=== PATIENT | male | born 1970 | race Caucasian/White ===

== ENCOUNTER → 2023-02-02 | Outpatient (CLI) | payer OTHER, SELFPAY ==
--- NOTE | 2023-02-02 11:37 | PFTCOMP ---
COMPLETE PULMONARY FUNCTION TEST REPORT Patient: Akira arteaga Date 02/02/2023 Referring physician: Dr. Adam Xiong Indication: Current [id number] smoker, dyspnea Spirometry pre and post bronchodilator showed: 1. No evidence of airway obstruction 2. No response to bronchodilator 3. Review of flow volume loop morphology showed Testament standards of acceptability, usability, and reproducibility. Steward/Stewardess Bath comments indicated a good patient effort. Lung volume studies by plethysmography were normal. 1. No evidence of restriction. The TLC was 94% predicted, vital capacity was 89% predicted. 2. No evidence of hyperinflation. The residual volume was 87% predicted, RV/TLC was 87%. Diffusing capacity by single breath carbon monoxide technique showed: 1. Normal gas exchange. Clinical and radiographic correlation is recommended. Shay Moore MD [facility] Pulmonary Medicine [facility] Date dictated: 02/02/2023, 1141 hrs.
== END | disposition home or self-care (01) ==
LOC: PSN 09:06
PROVIDERS: Referring Provider Internal Medicine Critical Care Medicine; Visit Provider Internal Medicine Critical Care Medicine
DX: R06.00 Dyspnea, unspecified (principal)
CPT/HCPCS: 94060; 94726; 94729

== ENCOUNTER → 2023-02-06 | Outpatient (CLI) | payer OTHER, SELFPAY ==
[2023-02-06 12:30] VITALS: PULSE 0; PULSE 84; PULSE 93; PULSE 94; PULSE 96; PULSE 97; PULSE 98; O2SAT 87; O2SAT 93; O2SAT 94; O2SAT 96
--- NOTE | 2023-02-07 05:51 | PCM.PSN.6M ---
PSN 6 Minute Walk Test 6 Minute Walk Test 6 Minute Walk Test: 6 Minute Walk Test PSN:6-Minute Walk Test Start: 02/06/23 12:34 Freq: Status: Active Protocol: [id number] Document 02/06/23 12:30 [facility] (Rec: 02/06/23 12:37 [facility] [id number]) 6 Minute Walk Test Date Performed 02/06/23 Time Performed 12:30 Height 6 ft Weight: 108.862 kg Weight in Pounds 240.[address]: Dr Xiong Assistive device used: None Pre-test Oxygen Delivery Method Room Air Pulse Ox (%) 87 Pulse Rate (60-100 beats/min) 0 L Dyspnea Benito Scale (0-10) 6 1st minute Oxygen Delivery Method Room Air Pulse Ox (%) 94 Pulse Rate (60-100 beats/min) 94 2nd minute Oxygen Delivery Method Room Air Pulse Ox (%) 94 Pulse Rate (60-100 beats/min) 94 3rd minute Oxygen Delivery Method Room Air Pulse Ox (%) 93 Pulse Rate (60-100 beats/min) 98 4th minute Oxygen Delivery Method Room Air Pulse Ox (%) 94 Pulse Rate (60-100 beats/min) 96 5th minute Oxygen Delivery Method Room Air Pulse Ox (%) 94 Pulse Rate (60-100 beats/min) 97 6th minute Oxygen Delivery Method Room Air Pulse Ox (%) 94 Pulse Rate (60-100 beats/min) 93 Dyspnea Benito Scale (0-10) 0.5 Exertion Benito Scale (6-20) 11 Post-test Oxygen Delivery Method Room Air Pulse Ox (%) 96 Pulse Rate (60-100 beats/min) 84 Full Laps Walked 21 Partial Lap, Number of Tiles Walked 15 Total Distance Walked (ft) 1254 Interpretation Interpretation: The patient was able to travel 1254 feet over the course of 6 minutes on room air with no assistive devices or breaks. The patient experienced no significant desaturation from a baseline of 94% on room air and no significant tachycardia was noted. These findings are consistent with a normal walking oximetry. Recommendations Recommendations: No supplemental oxygen is indicated at this time.
== END | disposition home or self-care (01) ==
LOC: PSN 11:56
PROVIDERS: Referring Provider Internal Medicine Critical Care Medicine; Visit Provider Internal Medicine Critical Care Medicine
DX: R06.00 Dyspnea, unspecified (principal)
CPT/HCPCS: 94618

== ENCOUNTER → 2023-05-28 | Outpatient (CLI) | payer OTHER, SELFPAY ==
--- NOTE | 2023-05-28 15:03 | CT_ITS ---
STUDY: CT ABDOMEN AND PELVIS WITHOUT CONTRAST REASON FOR EXAM: Male, 53 years old. N200,KIDNEY STONE RADIATION DOSAGE (If Supplied By Facility): CTDIvol = ( 19.70 ) mGy, DLP = ( 1032.09 ) mGycm TECHNIQUE: Transaxial images were obtained from the dome of the diaphragm to the symphysis pubis without oral contrast, and without intravenous contrast. Sagittal and coronal images were reconstructed. Individualized dose optimization techniques were used for this CT. COMPARISON: None. FINDINGS: 5 mm peripheral nodule in the right lung base posteriorly, image 6 series 2. The visualized portions of the heart are within normal limits. Normal liver. Normal gallbladder and extrahepatic biliary system. Normal spleen. Normal pancreas. Normal bilateral adrenal glands. Up to 1.8 cm cystic nodules of the right kidney. Up to 6 mm calculi in the left kidney. Normal visualized stomach. Normal small intestine. Normal colon. The appendix is visualized and appears normal. Normal abdominal aorta. Normal inferior vena cava. Normal retroperitoneum. Normal urinary bladder. Normal abdominal wall. Normal osseous structures. CT/Abdomen/Pelvis without Cont IMPRESSION: Right renal cystic nodules. Nonobstructive left renal calculi. Peripheral right lower lobe nodule. Follow-up in 3-4 months is recommended. Electronically Signed: Ernesto Hall DO at 20:05 EDT ,
== END | disposition home or self-care (01) ==
DX: N20.0 Calculus of kidney (principal)
CPT/HCPCS: 74176

== ENCOUNTER 2023-06-07 11:57 | Outpatient (CLI) | payer OTHER, SELFPAY ==
[2023-06-07 13:15] LABS: Absolute Neutrophil Count 7.6 X10^3/uL (2.0-7.7); Basophil# 0.03 X10^3/uL; Basophil% 0.3 % (0-1); Eosinophil# 0.16 X10^3/uL; Eosinophils% 1.5 % (0-5); Hematocrit 46.5 % (40-54); Hemoglobin 14.8 g/dL (13.0-16.5); Lymphocyte % 20.9 % (19-41); Mean Corp Hgb Conc 31.8 g/dL (32-36); Mean Corpuscular Hgb 29.4 pg (27.0-32.0); Mean Corpuscular Volume 92.3 fL (80-94); Mean Platelet Vol. 9.9 fl (6.2-12.0); Monocyte# 0.89 X10^3/uL; Monocyte% 8.1 % (0-10); NRBC Flagged by Analyzer 0 % (0-5); Neutrophil # 7.57 X10^3/uL (2.7-7.7); Neutrophil % 68.8 % (47-70); Platelet Count 235 K/mm3 (150-450); RBC Distribution Width CV 14.3 % (11.6-14.6); RBC Distribution Width SD 48.4 fl (35.1-43.9); Red Blood Count 5.04 M/mm3 (4.6-6.2)
[2023-06-07 13:19] LABS: International Normalized Ratio 1.1; Prothrombin Time (Protime)PT. 13.7 SECONDS (11.7-14.9)
[2023-06-07 13:33] LABS: Progesterone Level 0.29 ng/mL (See Comment); T3 Total - Triiodothyronine 1.54 ng/mL (0.6-1.81)
[2023-06-09 06:43] LABS: ALB/GLOB Ratio 0.9 RATIO (0.9-2.4); AST(SGOT) 22 U/L (15-37); Alanine Aminotransfer ALT/SGPT 30 U/L (16-61); Albumin, Serum 3.3 g/dL (3.2-5.0); Alkaline Phosphatase 61 U/L (45-117); Anion Gap 3 (5-15); BUN 13 mg/dL (7-18); BUN/Creat Ratio 17.2 RATIO (10-20); Chloride 108 mmol/L (98-107); Creatinine, Serum 0.76 mg/dL (0.70-1.30); EST Glomerular Filtration Rate 114 mL/min (>60); Est Glom Filt Rate - Afr Amer 137 mL/min (>60); Estradiol 32.8 pg/mL; Follicle Stimulating Hormone 8.1 mIU/mL; Globulin 3.8 g/dL (2.2-4.2); Glucose 113 mg/dL (74-106); Luteinizing Hormone 4.2 mIU/mL; Potassium 3.9 mmol/L (3.5-5.1); Prolactin 5.9 ng/mL; Protein, Total 7.1 g/dL (6.4-8.2); Sodium Level 140 mmol/L (136-145); T3 Uptake 34 % (33-40); T4 Total, Thyroxin 9.8 ug/dL (4.5-12.1); T7 / Free Thyroxin Index 3.3 (1.4-4.5); Thyroid Stim Hormone (TSH) 3.25 uIU/mL (0.358-3.74)
[2023-06-13 02:57] LABS: Estrogen, Total, Serum 152 pg/mL (56-213)
== END 2023-06-07 23:59 | disposition home or self-care (01) ==
DX: I73.9 Peripheral vascular disease, unspecified (principal); R53.82 Chronic fatigue, unspecified
CPT/HCPCS: 36415; 80053; 82670; 82672; 83001; 83002; 84144; 84146; 84403; 84436; 84443; 84479; 84480; 85025; 85610

== ENCOUNTER → 2023-06-11 | Outpatient (CLI) | payer OTHER, SELFPAY ==
--- NOTE | 2023-06-11 13:37 | CT_ITS ---
INDICATION: SOLITARY PULMONARY NODULE EXAMINATION: CT CHEST WITHOUT CONTRAST - CT Chest W/O Contrast Injection TECHNIQUE: Helically acquired images were obtained of the chest. A radiation dose optimization technique was used for this scan. IV Contrast dosage and agent: None. COMPARISON: CT abdomen and pelvis from 05/28/2023 FINDINGS: LUNGS, PLEURA AND LARGE AIRWAYS: Lung windows show lungs to be mildly hyperexpanded with chronic interstitial changes and tree in bud opacification suggesting small airways inflammation. There is a 1.5 cm pneumatocele in the right upper lobe, there is a stable 5 mm pleural-based nodule in the right lower lobe on axial image 72 unchanged from the recent CT abdomen and pelvis. A six-month follow-up is recommended to assess stability. No organized infiltrate or effusion. THYROID: No thyroid lesions. HEART AND PERICARDIUM: Heart size is normal. No pericardial effusion. CORONARY ARTERIES: Coronary artery calcification is seen. VESSELS: Thoracic aorta is not dilated. MEDIASTINUM AND SEA: No suspicious axillary mediastinal or hilar adenopathy. There are likely reactive mediastinal lymph nodes measuring up to 7 mm in short axis dimension. Esophagus is unremarkable. No hiatal hernia. UPPER ABDOMEN: No acute pathology. BONES: No suspicious lytic or blastic abnormality. Bony structures show degenerative change CT/Chest without Contrast IMPRESSION: Underlying emphysema with chronic interstitial changes. Small airways inflammation noted along with a stable noncalcified 5 mm pleural-based nodule in the right lower lobe. Six-month follow-up recommended to ensure resolution No organized infiltrate or effusion No suspicious bulky adenopathy Degenerative bony changes Electronically Signed: Donald Boudreaux MD at 15:33 EDT ,
== END | disposition home or self-care (01) ==
LOC: CT 13:33
DX: R91.1 Solitary pulmonary nodule (principal)
CPT/HCPCS: 71250

== ENCOUNTER → 2023-07-25 | Outpatient (CLI) | payer OTHER, SELFPAY ==
[2023-07-25 12:34] LABS: Absolute Lymphocyte Count 2.51 X10^3/uL (0.83-4.51); Absolute Neutrophil Count 7.7 X10^3/uL (2.0-7.7); Basophil# 0.04 X10^3/uL; Basophil% 0.4 % (0-1); Eosinophils% 0.9 % (0-5); Hematocrit 48.8 % (40-54); Hemoglobin 15.5 g/dL (13.0-16.5); Lymphocyte # 2.51 X10^3/ul (0.83-4.51); Lymphocyte % 22.4 % (19-41); Mean Corp Hgb Conc 31.8 g/dL (32-36); Mean Corpuscular Hgb 28.9 pg (27.0-32.0); Mean Corpuscular Volume 90.9 fL (80-94); Mean Platelet Vol. 9.8 fl (6.2-12.0); Monocyte# 0.76 X10^3/uL; Monocyte% 6.8 % (0-10); NRBC Flagged by Analyzer 0 % (0-5); Neutrophil # 7.74 X10^3/uL (2.7-7.7); Platelet Count 227 K/mm3 (150-450); RBC Distribution Width CV 14.1 % (11.6-14.6); RBC Distribution Width SD 47.4 fl (35.1-43.9); Red Blood Count 5.37 M/mm3 (4.6-6.2); White Blood Count 11.2 K/mm3 (4.4-11.0)
[2023-07-25 12:48] LABS: Prothrombin Time (Protime)PT. 13.6 SECONDS (11.7-14.9)
[2023-07-25 13:20] LABS: Anion Gap 5 (5-15); BUN 12 mg/dL (7-18); BUN/Creat Ratio 14.5 RATIO (10-20); Calcium,Total 9.1 mg/dL (8.5-10.1); Chloride 105 mmol/L (98-107); Creatinine, Serum 0.83 mg/dL (0.70-1.30); EST Glomerular Filtration Rate 102 mL/min (>60); Est Glom Filt Rate - Afr Amer 124 mL/min (>60); Glucose 97 mg/dL (74-106); Potassium 4.1 mmol/L (3.5-5.1); Sodium Level 138 mmol/L (136-145)
== END | disposition home or self-care (01) ==
DX: I73.9 Peripheral vascular disease, unspecified (principal)
CPT/HCPCS: 36415; 80048; 85025; 85610

== ENCOUNTER → 2023-07-31 | Outpatient (CLI) | payer OTHER, SELFPAY ==
--- NOTE | 2023-07-31 07:20 | EKG12_ITS ---
Test Reason : PRE-OP Blood Pressure : / mmHG Vent. Rate : 077 BPM Atrial Rate : 077 BPM P-R Int : 186 ms QRS Dur : 108 ms QT Int : 400 ms P-R-T Axes : 041 050 043 degrees QTc Int : 452 ms Normal sinus rhythm Normal ECG Confirmed by ZENAIDA ROSE, ROSALIND ([id number]), editorial cartoonist ROCHELLE ASHLEY ([id number]) on 08/06/2023 7:01:22 AM Referred By: MIRIAN DEGROOT Confirmed By:JUAREZ ESTEVEZ MD
== END | disposition home or self-care (01) ==
LOC: PSN 07:19
DX: Z01.810 Encounter for preprocedural cardiovascular examination (principal)
CPT/HCPCS: 93005

== ENCOUNTER → 2024-06-16 | Outpatient (CLI) | payer OTHER, SELFPAY ==
--- NOTE | 2024-06-16 17:51 | CT_ITS ---
STUDY: CT ABDOMEN AND PELVIS WITHOUT CONTRAST REASON FOR EXAM: Male, 54 years old. KIDNEY STONE RADIATION DOSAGE (If Supplied By Facility): CTDIvol = ( 20.29 ) mGy, DLP = ( 1108.57 ) mGycm TECHNIQUE: Transaxial images were obtained from the dome of the diaphragm to the symphysis pubis without oral contrast, and without intravenous contrast. Sagittal and coronal images were reconstructed. Individualized dose optimization techniques were used for this CT. COMPARISON: May 28, 2023 FINDINGS: The visualized lung bases are unremarkable. The visualized portions of the heart are within normal limits. Normal liver. Normal gallbladder and extrahepatic biliary system. Normal spleen. Normal pancreas. Normal bilateral adrenal glands. Tiny nonobstructing right renal calculus.. There is also a tiny cortical cyst which will not require additional. Multiple nonobstructing left renal calculi. . No evidence for obstruction or ureteral calculus. Normal visualized stomach. Normal small intestine. Normal colon. The appendix is visualized and appears normal. Atherosclerotic changes of the aorta without evidence for aneurysm. Normal inferior vena cava. Normal retroperitoneum. Poorly distended thick walled bladder likely of no significance. Small bilateral fat-containing inguinal hernias. Lumbar spine demonstrates degenerative change CT/Abdomen/Pelvis without Cont IMPRESSION: Bilateral nephrolithiasis more on the left without evidence for renal obstruction or ureteral stone. Electronically Signed: Luke Menezes MD at 19:31 EDT ,
--- OUTSIDE RECORDS SUMMARY | 2024-06-16 20:07 | XMS RPT_ITS | CCD ---
Author Organization [facility] Care Team Providers Care Clinical Data Associate Name Role Phone Ronny Guzmán Attending Unavailable MARI Eid.MANUELITO Zhang Attending Edwin Crespo Attending Unavailable NELIA MORRIS Attending Unavailable NELIA MORRIS Referring Unavailable MARNIE CHOPRA Primary Care Unavailable CAMERON MONTEIRO Attending Unavailable CAMERON MONTEIRO Referring Unavailable MARNIE [...] Peripheral vascular disease, unspecified; Translations: [Atherosclerosis of [place] arteries of extremities with intermittent claudication, bilateral legs] Onset: 04-13-2023 Chronic Results Test Name Value Interpretation Reference Range Facility ADCon 04-13-2023 ADC Name: DONNA BRAY Phys: Leatha Eid APRN.CNP : 1970 Age: 53 Sex: M Acct: [id number] Loc: [facility] Exam Date: 04/13/2023 Status: REG REF Radiology No: Unit No: [id number] PH: [phone] Diagnosis: PAD EXAM: [id number] AORTA DUPLEX COMPLETE Reason For Procedure: PAD [...] Technologist: VIOLA GUTIERREZ Transcribed Date/Time: 04/13/2023 (1145) Internal Communications Manager: RAKESH Printed Date/Time: 04/13/2023 (4480) PAGE 1 Signed Report Normal [facility]CL[facility] 04-13-2023 [facility] Name: DONNA BRAY Phys: Leatha Eid APRN.BIOINFORMATICS PROGRAMMER : 1970 Age: 53 Sex: M Acct: [id number] Loc: [facility] Exam Date: 04/13/2023 Status: REG REF Radiology No: Unit No: [id number] PH: [phone] Diagnosis: PAD EXAM: [id number] ARTERIAL DUPLEX LE BILATERAL Reason For Procedure: [...] (CONTINUED) Name: DONNA BRAY Phys: Leatha Eid APRN.BIOINFORMATICS PROGRAMMER : 1970 Age: 53 Sex: M Acct: [id number] Loc: [facility] Exam Date: 04/13/2023 Status: REG REF Radiology No: Unit No: [id number] PH: [phone] Diagnosis: PAD EXAM: [id number] ARTERIAL DUPLEX LE BILATERAL Reason For Procedure: [...] CC: Technologist: VIOLA GUTIERREZ Transcribed Date/Time: 04/13/2023 (0617) Internal Communications Manager: RAKESH Printed Date/Time: 04/13/2023 (8379) PAGE [address] [facility] 04-13-2023 [facility] Name: DONNA BRAY Phys: Leatha Eid APRN.BIOINFORMATICS PROGRAMMER : 1970 Age: 53 Sex: M Acct: [id number] Loc: [facility] Exam Date: 04/13/2023 Status: REG REF Radiology No: Unit No: [id number] PH: [phone] Diagnosis: PAD EXAM: [id number] CAROTID DUPLEX BILATERAL Reason For Procedure: PAD [...] (CONTINUED) Name: DONNA BRAY Phys: Leatha Eid APRN.BIOINFORMATICS PROGRAMMER : 1970 Age: 53 Sex: M Acct: [id number] Loc: [facility] Exam Date: 04/13/2023 Status: REG REF Radiology No: Unit No: [id number] PH: [phone] Diagnosis: PAD EXAM: [id number] CAROTID DUPLEX BILATERAL Reason For Procedure: PAD IMPRESSION No significant increase in velocities denoting less than 50% stenosis in bilateral internal carotid artery Bilateral vertebral arteries exhibit antegrade flow. REPORT SIGNED IN OTHER VENDOR SYSTEM 04/13/2023 Reported By: Franc Paez MD CC: Technologist: VIOLA GUTIERREZ Transcribed Date/Time: 04/13/2023 (2122) Internal Communications Manager: RAKESH Printed Date/Time: 04/13/2023 (1147) PAGE 2 Signed Report Normal [facility] ECHOIon 07-10-2022 ECHOI [facility] [address] [id number] ECHOCARDIOGRAM REPORT Transthoracic Echocardiography Report (TTE) Report Status: Finalized Revision: 0 Demographics Name: DONNA BRAY Requested by: SHANICE Matute :1970 Gender:Male Procedure date: 07/10/2022 [employer] Furnace Operator Helper: MD Franc Paez Height: 72 Inches Party Plan Dealer: PERLITA Pat Weight: 230.01 Pounds Blood Pressure: 128/84 mmHg BSA: 2.26 m 2 Type of study: [facility] ECHOCARDIOGRAM COMPLETE Indications: 1) PVCs History: CAD,PAD,PVCs,HTN,HLD,MANUEL [...] with respirations. ! Name: DONNA BRAY MR#: [id number] !No pericardial effusion noted. ! !No pleural [...] pulmonic stenosis. pressure. Name: DONNA BRAY MR#: [id number] 2D measurements Left ventricle MARLEY dimension: 4.62 [...] Mean Veloc (more content not included)... Normal [facility] CT CHEST WITH CONTRASTon CT CHEST WITH CONTRAST [id number] Signs/Symptoms: optum c [id number] auth ct [id number] History: R91.[address] CHEST [...] 14:07 by: Alpesh Nance MD Order Number: [id number] [facility] Comment on above: Order Comment: ctch2 orders fax NKA/DD/L ABS ORDERED POC CREATININE READINGon Creatinine [Mass/Vol] 1.00 mg/dL Normal 0.7-1.3 [facility] Comment on above: Performed By: #### PCRX #### [facility] [address] [place] [address]25 eGFR AM. >60 Normal >60 [facility] Comment on above: Performed By: #### PCRX #### [facility] [address] [place] [address]402 eGFR NON AM. >60 Normal >60 [facility] Comment on above: Performed By: #### PCRX #### [facility] [address] [place] [address] MR CERVICAL NO CONTRASTon MR CERVICAL NO CONTRAST [id number] Signs/Symptoms: [facility] OPTUM [id number] AUTH C - [id number] T [id number] History: THORACIC/CERVICAL PAIN WORSENING MR CERVICAL NO [...] 07:14 by: Obi Seaman MD Order Number: [id number] [facility]. Comment on above: Order Comment: MRCER1 MRTH1 ORDERS FAX MR THORACIC WITHOUT CONTRAST on 08-08-2020 MR THORACIC WITHOUT CONTRAST [id number] Signs/Symptoms: [facility] OPTUM [id number] AUTH C - [id number] T [id number] History: THORACIC/CERVICAL PAIN WORSENING MR THORACIC WITHOUT [...] 07:16 by: Obi Seaman MD Order Number: [id number] [facility] Comment on above: Order Comment: MRCER1 MRTH1 ORDERS FAX Encounters Encounter Date Encounter Type Care Provider Facility Start: 05-30-2024 ambulatory CAMERON Issaflavia Rea chong [facility] Start: 11-20-2023 ambulatory NELIA [facility] Start: 05-14-2023 ambulatory Edwin Molina Facility: [facility] Start: 04-13-2023 ambulatory MANAGER COMPLETIONS.MANUELITO gilliland Facility:[facility] Start: 07-10-2022 ambulatory Ronny Guzmán Facility :[facility] Payers Date Payer Category Payer Policy ID Unknown [id number] Unknown [id number] [id number]. [id number] Unknown [id number] 2.16. [id number] Unknown [id number] 2.16. [id number] Unknown [id number] 02 Summary Purpose Family History No Family History Records FoundNo Family History Records FoundNo Family History Records Found Advance Directives No Advanced Directives Records FoundNo Advanced Directives Records FoundNo Advanced Directives Records Found Additional Source Comments (unrecognized sect ion and content) No Status Records FoundNo Status Records FoundNo Status Records Found INFORMATION SOURCE (unrecogn ized section and content) DATE CREATED AUTHOR [facility]20[facility] DATE CREATED AUTHOR AUTHOR'S ORGANIZ ATION 06/01/2023 [facility] stepan Monk DATE CREATED AUTHOR AUTHOR'S ORGANIZ ATION 06/02/2024 [facility] FOR RECORDS PERTAINING TO PATIENTS WHO [...] ON THE PRIMARY CLINICAL RECORDS. [facility] [employer] provides no warranty or guarantee of the accuracy or completeness of information in this document.
== END | disposition home or self-care (01) ==
DX: N20.0 Calculus of kidney (principal); R10.9 Unspecified abdominal pain
CPT/HCPCS: 74176

== ENCOUNTER → 2024-06-16 | Outpatient (CLI) | payer OTHER, SELFPAY ==
[2024-06-16 17:20] LABS: Cytology, Body Fluid / CSF SEE PATHOLOGY REPORT
[2024-06-16 17:35] LABS: Color, Urine Yellow (Yellow); Glucose, Dipstick Normal (Normal); Ketone-Dipstick Negative (Negative); Leukocyte Esterase-Dipstick 25 /ul (Negative); Nitrite-Dipstick Negative (Negative); Occult Blood-Urine 50 /ul (Negative); Protein-Dipstick 30 mg/dl (Negative); Specific Gravity, Urine 1.015 (1.002-1.030); Urine Bilirubin Dipstick Negative (Negative); Urine Clarity Clear (Clear); Urine Urobilinogen 1 mg/dl (Normal)
[2024-06-16 17:42] LABS: Hematocrit 44.9 % (40-54); Hemoglobin 14.4 g/dL (13.0-16.5); Mean Corp Hgb Conc 32.1 g/dL (32-36); Mean Corpuscular Hgb 28.7 pg (27.0-32.0); Mean Corpuscular Volume 89.4 fL (80-94); Mean Platelet Vol. 9.8 fl (6.2-12.0); Platelet Count 207 K/mm3 (150-450); RBC Distribution Width CV 14.8 % (11.6-14.6); Red Blood Count 5.02 M/mm3 (4.6-6.2); White Blood Count 9.9 K/mm3 (4.4-11.0)
[2024-06-16 18:41] LABS: ALB/GLOB Ratio 0.9 RATIO (0.9-2.4); AST(SGOT) 34 U/L (15-37); Alanine Aminotransfer ALT/SGPT 38 U/L (16-61); Albumin, Serum 3.4 g/dL (3.2-5.0); Alkaline Phosphatase 57 U/L (45-117); Anion Gap 2 (5-15); BUN 16 mg/dL (7-18); BUN/Creat Ratio 17.6 RATIO (10-20); Calcium,Total 8.9 mg/dL (8.5-10.1); Chloride 108 mmol/L (98-107); Creatinine, Serum 0.91 mg/dL (0.70-1.30); EST Glomerular Filtration Rate 91 mL/min (>60); Est Glom Filt Rate - Afr Amer 111 mL/min (>60); Globulin 3.9 g/dL (2.2-4.2); Glucose 88 mg/dL (74-106); PSA,Total - Annual Screen 0.58 ng/mL (0.00-4.00); Potassium 3.7 mmol/L (3.5-5.1); Protein, Total 7.3 g/dL (6.4-8.2); Sodium Level 140 mmol/L (136-145)
--- OUTSIDE RECORDS SUMMARY | 2024-06-16 20:06 | XMS RPT_ITS | CCD ---
Author Organization [facility] Care Team Providers Care Enterprise Services Manager Name Role Phone Ronny Guzmán Attending Unavailable MARI Eid.MANUELITO Zhang Attending Edwin Crespo Attending Unavailable NELIA MORRIS Attending Unavailable NELIA MORRIS Referring Unavailable MARNIE CHOPRA Primary Care Unavailable CAMERON MONTERIO Attending Unavailable CAMERON MONTEIRO Referring Unavailable MARNIE CHOPRA Primary Care Unavailable Problems Problem Classification Problem Date Documented Da te Episodic/Chronic Cardiac dysrhythmias (1 source) Ventricular premature depolarization; Translations: [VENTRICULAR PREMATURE DEPOLARIZATION] Onset: 07-10-2022 Chronic Coronary atherosclerosis and other heart disease (1 source) Chronic ischemic heart disease, unspecified; Translations: [CHRONIC ISCHEMIC HEART DISEASE, UNSPECIF] Onset: 07-10-2022 Chronic Other circulatory disease (1 source) Other specified symptoms and signs involving the circulatory and respiratory systems; Translations: [OTH SYMPTOMS AND SIGNS INVOLVING THE CIRC AND RESP] Onset: 04-13-2023 Episodic Peripheral and visceral atherosclerosis (3 sources) Peripheral vascular disease, unspecified; Translations: [Atherosclerosis of [place] arteries of extremities with intermittent claudication, bilateral legs] Onset: 04-13-2023 Chronic Results Test Name Value Interpretation Reference Range Facility ADCon 04-13-2023 ADC Name: DONNA BRAY Phys: Leatha Eid APRN.CNP : 1970 Age: 53 Sex: M Acct: [id number] Loc: [facility] Exam Date: 04/13/2023 Status: REG REF Radiology No: Unit No: [id number] PH: [phone] Diagnosis: PAD EXAM: [id number] AORTA DUPLEX COMPLETE Reason For Procedure: PAD STUDY: AORTA DUPLEX COMPLETE CLINICAL INDICATION: Abdominal aortic aneurysm screening TECHNIQUE: Abdominal aortic ultrasound. Color flow and duplex imaging provided. COMPARISON: None FINDINGS: Proximal Aorta: 2.6 cm. With a velocity of 113 cm/s Mid Aorta: 1.7 cm Distal Aorta: 1.6 cm Right Iliac: 0.9 cm. With a velocity of 118 cm/s Left Iliac: 1.1 cm. With a velocity of 118 cm/s IMPRESSION: NO ABDOMINAL AORTIC ANEURYSM. SITE: O REPORT SIGNED IN OTHER VENDOR SYSTEM 04/13/2023 Reported By: Franc Paez MD CC: Technologist: VIOLA GUTIERREZ Transcribed Date/Time: 04/13/2023 (1145) Snow Fence Erector: RAKESH Printed Date/Time: 04/13/2023 (8215) PAGE 1 Signed Report [facility]20[facility] Name: DONNA BRAY Phys: Leatha Eid APRN.PATHOLOGY LABORATORY AIDE : 1970 Age: 53 Sex: M Acct: [id number] Loc: [facility] Exam Date: 04/13/2023 Status: REG REF Radiology No: Unit No: [id number] PH: [phone] Diagnosis: PAD EXAM: [id number] ARTERIAL DUPLEX LE BILATERAL Reason For Procedure: PAD PROCEDURE: ARTERIAL DUPLEX LOWER EXTREMITIES BILATERAL CLINICAL INDICATION: Leg pain. FINDINGS: Right: External iliac artery has a PSV 197 cm/sec with a triphasic waveform Common femoral artery has a PSV 142 cm/sec with a right phasic waveform. Profunda femoral artery has a PSV 172 cm/sec with a biphasic waveform. Proximal superficial femoral artery PSV 90 cm/sec with a biphasic waveform. Mid superficial femoral artery PSV 250 cm/sec with a triphasic waveform.. Distal superficial femoral artery PSV 47 cm/sec with a triphasic waveform. Gian?s canal SFA PSV 63 cm/sec with a triphasic waveform. Popliteal artery PSV 98 cm/sec with a triphasic waveform. Posterior tibialis artery PSV 26 cm/sec proximally and PSV [27] cm/sec distally with a biphasic waveform. Anterior tibialis artery PSV 19 cm/sec with a biphasic waveform. Peroneal artery PSV 18 cm/sec with a biphasic waveform. Left: External iliac artery has a PSV 160 cm/sec with a triphasic waveform Common femoral artery has a PSV 122 cm/sec with a triphasic waveform. Profunda femoral artery has a PSV 120 cm/sec with a triphasic waveform. Proximal superficial femoral artery PSV 139 cm/sec with a triphasic waveform. Mid superficial femoral artery PSV 78 cm/sec with a triphasic waveform.. Distal superficial femoral artery PSV 288 cm/sec with a triphasic waveform. Gian?s canal SFA PSV 96 cm/sec with a triphasic waveform. Popliteal artery PSV 96 cm/sec with a triphasic waveform. Posterior tibialis artery PSV 47 cm/sec proximally and PSV [45] cm/sec distally with a biphasic waveform. Anterior tibialis artery PSV 31 cm/sec with a biphasic waveform. Peroneal artery PSV 34 cm/sec with a biphasic waveform. Right RASHID: 0.85 Left RASHID: 1.06 There is moderate amount of plaquing which is calcified scattered and heterogeneous PAGE 1 Signed Report (CONTINUED) Name: DONNA BRAY Phys: Leatha Eid APRN.PATHOLOGY LABORATORY AIDE : 1970 Age: 53 Sex: M Acct: [id number] Loc: [facility] Exam Date: 04/13/2023 Status: REG REF Radiology No: Unit No: [id number] PH: [phone] Diagnosis: PAD EXAM: [id number] ARTERIAL DUPLEX LE BILATERAL Reason For Procedure: PAD IMPRESSION: This study demonstrates increase in velocities on the right iliac, right proximal SFA, right mid SFA, left distal SFA. Flow is triphasic and biphasic Doppler bilateral lower extremities Normal RASHID of the left lower extremity Moderate PAD. RASHID on the right lower extremity Recommend further imaging if clinically indicated REPORT SIGNED IN OTHER VENDOR SYSTEM 04/13/2023 Reported By: Franc Paez MD CC: Technologist: VIOLA GUTIERREZ Transcribed Date/Time: 04/13/2023 (3108) Snow Fence Erector: RAKESH Printed Date/Time: 04/13/2023 (4979) PAGE 2 Signed Report Normal [facility] 04-13-2023 [facility] Name: DONNA BRAY Phys: Leatha Eid APRN.PATHOLOGY LABORATORY AIDE : 1970 Age: 53 Sex: M Acct: [id number] Loc: [facility] Exam Date: 04/13/2023 Status: REG REF Radiology No: Unit No: [id number] PH: [phone] Diagnosis: PAD EXAM: [id number] CAROTID DUPLEX BILATERAL Reason For Procedure: PAD Exam: US DOPPLER CAROTID BILATERAL INDICATION: PVD COMPARISON: TECHNIQUE: SURVEY ULTRASOUND IMAGING of the bilateral extracranial carotid arterial systems was performing including spectral and color Doppler assessments with representatives images obtained. Velocity criteria are extrapolated from diameter data validated with angiographic measurements using the NASCET criteria. Findings: Right Proximal CCA: 120 cm/s Mid CCA: 110 cm/s Bulb : 82 cm/s Proximal ICA: 99 cm/s Mid ICA: 81 cm/s Distal ICA: 87 cm/s External Carotid artery: 170 cm/s ICA/CCA ratio: 0.9 Vertebral Artery Velocity: 51 cm/s with [antegrade] flow There is mild of intimal thickening with minimal of plaquing Left Proximal CCA: 130 cm/s Mid CCA: 97 cm/s Bulb : 101 cm/s Proximal ICA: 88 cm/s Mid ICA: 92 cm/s Distal ICA: 90 cm/s External Carotid artery: 163 cm/s ICA/CCA ratio: 0.9 Vertebral Artery Velocity: 56 cm/s with [antegrade] flow There is moderate of intimal thickening with mild of plaquing which was noted at the level of the bulb which is smooth and high density. . PAGE 1 Signed Report (CONTINUED) Name: DONNA BRAY Phys: Leatha Eid APRN.PATHOLOGY LABORATORY AIDE : 1970 Age: 53 Sex: M Acct: [id number] Loc: [facility] Exam Date: 04/13/2023 Status: REG REF Radiology No: Unit No: [id number] PH: [phone] Diagnosis: PAD EXAM: [id number] CAROTID DUPLEX BILATERAL Reason For Procedure: PAD IMPRESSION No significant increase in velocities denoting less than 50% stenosis in bilateral internal carotid artery Bilateral vertebral arteries exhibit antegrade flow. REPORT SIGNED IN OTHER VENDOR SYSTEM 04/13/2023 Reported By: Franc Paez MD CC: Technologist: VIOLA GUTIERREZ Transcribed Date/Time: 04/13/2023 (0433) Snow Fence Erector: RAKESH Printed Date/Time: 04/13/2023 (1147) PAGE 2 Signed Report [facility] ECHOIon 07-10-2022 ECHOI [facility] [address] [id number] ECHOCARDIOGRAM REPORT Transthoracic Echocardiography Report (TTE) Report Status: Finalized Revision: 0 Demographics Name: DONNA BRAY Requested by: SHANICE Matute :1970 Gender:Male Procedure date: 07/10/2022 Aix Architect: MD Franc Paez Height: 72 Inches Living Advisor: PERLITA Pat Weight: 230.01 Pounds Blood Pressure: 128/84 mmHg BSA: 2.26 m 2 Type of study: [facility] ECHOCARDIOGRAM COMPLETE Indications: 1) PVCs History: CAD,PAD,PVCs,HTN,HLD,MANUEL D.CP Status: Routine Quality: Adequate visualization IMPRESSION + ---+ !Normal LV cavity size. ! !Ejection Fraction is estimated to be 65-70 %. ! !Mild left ventricular hypertrophy. ! !Grade 2 - pseudonormalization left ventricular diastolic dysfunction. ! !Mild left atrial enlargement. ! !Normal right atrial size. ! !Normal RV size. ! !Tricuspid annular planar systolic excursion (TAPSE) is 24 mm. This is ! !consistent with normal RV systolic function (> 16 mm normal) . ! !TDI systolic velocity (S') is 13 cm/s. (Normal is >10 cm/s.). ! !There is no evidence of intracardiac thrombus. ! !No evidence of interatrial shunt by color flow imaging. ! !No evidence of interventricular shunt by color flow imaging. ! !The IVC is not dilated and collapses normally with respirations. ! Name: DONNA BRAY MR#: [id number] !No pericardial effusion noted. ! !No pleural effusion noted. ! !No mitral regurgitation. ! !No mitral stenosis. ! !Normal aortic valve structure. ! !No aortic insufficiency. ! !No aortic stenosis. ! !The ascending aorta is normal at less than or equal to 3.8 cm . ! !Normal tricuspid valve structure. ! !No tricuspid regurgitation. ! !No tricuspid stenosis. ! !Cannot accurately estimate RVSP/PA systolic pressure. ! !No pulmonic insufficiency. ! !No pulmonic stenosis. ! + ---+ + ---+ !Signatures ! + ---+ ! ! ! ! ! ! + ---+ STUDY DETAILS Left ventricle: Left atrium: Normal LV cavity size. Left atrial volume index is Ejection Fraction is estimated to be 65-70 %. normal at 31 ml/m2. (normal Mild left ventricular hypertrophy. is < 34 ml/m2). Grade 2 - pseudonormalization left Mild left atrial ventricular diastolic dysfunction. enlargement. Right ventricle: Right atrium: Normal RV size. Normal right atrial size. Tricuspid annular planar systolic excursion (TAPSE) is 24 mm. This is consistent with normal RV systolic function (> 16 mm normal) . TDI systolic velocity (S') is 13 cm/s. (Normal is >10 cm/s.). Mitral valve: Aortic valve: Normal mitral valve structure. Normal aortic valve No mitral regurgitation. structure. No mitral stenosis. No aortic insufficiency. No aortic stenosis. The ascending aorta is normal at less than or equal to 3.8 cm . Tricuspid valve: Pulmonic valve: Normal tricuspid valve structure. Normal pulmonic valve No tricuspid regurgitation. structure. No tricuspid stenosis. No pulmonic insufficiency. Cannot accurately estimate RVSP/PA systolic No pulmonic stenosis. pressure. Name: DONNA BRAY MR#: [id number] 2D measurements Left ventricle MARLEY dimension: 4.62 cm (3.5-5.5 Systolic dimension: 2.91 cm (2.5-4.0 cm) cm) Septum MARLEY: 1.37 cm (0.7-1.2 cm) LVPW MARLEY: 1.35 cm (0.7-1.1 cm) Volume MARLEY: 98.33 ml Volume systolic: 32.48 ml EF (Teich): 66.97% (55-75%) FS: 37.01 % SV Index: 27.6ml/m 2 Left atrium LA dimension:3.7 cm LA area:20.3 cm 2 LA/Aorta:1.32 LA volume/index:31 ml/m 2 LA Volume: 69.99 ml Doppler measurements Mitral valve Area (PHT): 3.19 cm 2 Mean velocity: 54.9 cm/s Peak E-wave: 64.3 cm/s Peak velocity: 64.3 cm/s Peak A-wave: 52.3 cm/s Mean gradient: 1 mmHg E/A ratio: 1.23 Peak gradient: 1.65 mmHg P1/2t: 69 msec Deceleration time: 201 msec Tissue doppler E' velocity: 7.51 cm/s Aortic valve Peak Velocity: 133 cm/s Area (continuity): 3.78 cm 2 Peak gradient: 7.08 mmHg LV V1 max: 102 cm/s AV VTI: 24.4 cm Mean gradient: 4 mmHg ACS: 2 cm LVOT VTI: 20.4 cm Aortic Root: 2.8 cm LVOT diameter: 2.4 cm Ascending aorta: 3.3 cm Mean Veloc (more content not included)... [facility] CT CHEST WITH CONTRASTon CT CHEST WITH CONTRAST [id number] Signs/Symptoms: optum c [id number] auth ct [id number] History: R91.[address] CHEST WITH CONTRAST CLINICAL HISTORY: R91.1 Solitary pulmonary nodule . Diagnosed on CTA chest done in 2014. Currently a smoker.. . TECHNIQUE: Chest CT with intravenous contrast. CONTRAST: Isovue 300 Injection 75 milliliter COMPARISON: CT chest 04/19/2020 # of known CTs in the past 12 months: 0 # of known Cardiac Nuclear Medicine Studies in the past 12 months: 0 FINDINGS: Hardware: None. Lymph nodes: No mediastinal, hilar, or axillary lymphadenopathy. Heart and Vasculature: Coronary artery calcifications are noted. Thoracic aorta and pulmonary arteries are unremarkable. Lungs and Airways: There is some dependent atelectasis. There are stable subpleural nodules in the right lower lobe (image 155 and image 167 series 3). A right upper lobe pulmonary nodule (image 79 series 3) is also stable. No new nodules are appreciated. There are some paraseptal emphysematous changes. Pleura: No pleural effusion. No pneumothorax. Upper Abdomen: A 15 mm low-density nodule in the right kidney (image 276 series 3) is stable compared to CT from 08/14/2019. Bones: Bone windows are unremarkable. IMPRESSION: Stable small pulmonary nodules. No new pulmonary nodules identified. Stable 5 mm noncalcified pulmonary nodule within the right upper lobe. Follow-up according to Fleischner protocol is suggested. SOLID NODULES - SINGLE LOW RISK <6mm: No routine follow-up* 6-8mm: CT at 6-12 months, then consider CT at 18-24 months >8mm: Consider CT at 3 months, PET/CT, or tissue sampling HIGH RISK <6mm: Optional CT at 12 months* 6-8mm: CT at 6-12 months, then CT at 18-24 months >8mm: Consider CT at 3 months, PET/CT, or tissue sampling * Certain patients at high risk with suspicious nodule morphology, upper lobe location, or both may warrant 12-month follow-up (Guidelines for Management of Incidental Pulmonary Nodules Detected on CT Images: From the Fleischner Society 2017.). One or more dose reduction techniques were used (e.g., Automated exposure control, adjustment of the mA and/or kV according to patient size, use of iterative reconstruction technique). Approved By: Alpesh Nance MD Electronically Signed On: 07/28/2021 14:07 by: Alpesh Nance MD Order Number: [id number] [facility] Comment on above: Order Comment: ctch2 orders fax NKA/DD/L ABS ORDERED POC CREATININE READINGon Creatinine [Mass/Vol] 1.00 mg/dL Normal 0.7-1.3 [facility] Comment on above: Performed By: #### PCRX #### [facility] [address] [place] [address] eGFR AM. >60 Normal >60 [facility] Comment on above: Performed By: #### PCRX #### [facility] [address] [place] [address] eGFR NON AM. >60 Normal >60 [facility] Comment on above: Performed By: #### PCRX #### [facility] [address] [place] [id number] MR CERVICAL NO CONTRASTon MR CERVICAL NO CONTRAST [id number] Signs/Symptoms: [facility] [id number] AUTH C - [id number] T [id number] History: THORACIC/CERVICAL PAIN WORSENING MR CERVICAL NO CONTRAST CLINICAL HISTORY: THORACIC/CERVICAL PAIN WORSENING. left arm pain and numbness, tingling left hand, mid back pain X several years, getting worse. TECHNIQUE: Noncontrast cervical spine MRI. COMPARISON: None. FINDINGS: Vertebrae: Cervical vertebral body heights are preserved. Bone marrow signal is unremarkable. Alignment: Normal. No spondylolisthesis. Spinal Cord: Cervical spinal cord is of normal size and signal intensities. Structures at the foramen magnum are unremarkable. C2-3: Unremarkable. C3-4: Unremarkable. C4-5: Posterior disc and osteophyte. Mild bilateral neuroforaminal stenosis but no central stenosis. C5-6: Posterior disc and osteophyte. Mild bilateral neural foraminal stenosis but no central stenosis. C6-7: Posterior disc and osteophyte. Borderline central stenosis. Bilateral neural foraminal stenosis. C7-T1: Unremarkable. IMPRESSION: Mild degenerative changes at C4-C5, C5-C6 and C6-C7. Please see above discussion. Approved By: Obi Seaman MD Electronically Signed On: 08/09/2020 07:14 by: Obi Seaman MD Order Number: [id number] [facility]. Comment on above: Order Comment: [id number] MRTH1 ORDERS FAX MR THORACIC WITHOUT CONTRAST on 08-08-2020 MR THORACIC WITHOUT CONTRAST [id number] Signs/Symptoms: [facility] [id number] AUTH C - [id number] T [id number] History: THORACIC/CERVICAL PAIN WORSENING MR THORACIC WITHOUT CONTRAST CLINICAL HISTORY: THORACIC/CERVICAL PAIN WORSENING. left arm pain and numbness, tingling left hand, mid back pain X several years, getting worse. TECHNIQUE: Noncontrast thoracic spine MRI. COMPARISON: None. FINDINGS: Vertebrae: Thoracic vertebral body heights are preserved. Bone marrow signal is unremarkable. Alignment: Normal. No spondylolisthesis. Spinal Cord: Thoracic spinal cord is of normal size and signal intensities. Disc spaces: Mild multilevel thoracic degenerative changes without central canal stenosis. Paraspinal Tissues: Unremarkable. IMPRESSION: MILD THORACIC DEGENERATIVE CHANGE. NO EVIDENCE OF DISC HERNIATION OR SIGNIFICANT CENTRAL CANAL STENOSIS. Approved By: Obi Seaman MD Electronically Signed On: 08/09/2020 07:16 by: Obi Seaman MD Order Number: [id number] [facility] Comment on above: Order Comment: MRCER1 MRTH1 ORDERS FAX Encounters Encounter Date Encounter Type Care Provider Facility Start: 05-30-2024 ambulatory CAMERON Issaflavia Rea chong [facility] Start: 11-20-2023 ambulatory NELIA [facility] Start: 05-14-2023 ambulatory Edwin Molina Facility: [facility] Start: 04-13-2023 ambulatory PRODUCT EXAMINER.MANUELITO gilliland Facility:[facility] Start: 07-10-2022 ambulatory Ronny Guzmán Facility :[facility] Payers Date Payer Category Payer Policy ID Unknown [id number] Unknown [id number] [id number]. [id number] Unknown [id number] 2.16. [id number] Unknown [id number] 2.16. [id number] Unknown [id number] 02 Summary Purpose Family History No Family History Records FoundNo Family History Records FoundNo Family History Records Found Advance Directives No Advanced Directives Records FoundNo Advanced Directives Records FoundNo Advanced Directives Records Found Additional Source Comments (unrecognized sect ion and content) No Status Records FoundNo Status Records FoundNo Status Records Found INFORMATION SOURCE (unrecogn ized section and content) DATE CREATED AUTHOR [facility]2021 [facility] DATE CREATED AUTHOR AUTHOR'S ORGANIZ ATION 06/01/2023 [facility] stepan Monk DATE CREATED AUTHOR AUTHOR'S ORGANIZ ATION 06/02/2024 [facility] FOR RECORDS PERTAINING TO PATIENTS WHO ARE OR HAVE BEEN ENROLLED IN A CHEMICAL DEPENDENCY/SUBSTANCEABUSE PROGRAM, SOME INFORMATION MAY BE OMITTED. This clinical summary was aggregated from multiple sources. Caution should be exercised in using it in the provision of clinical care. This summary normalizes information from multiple sources, and as a consequence, information in this document may materially change the coding, format and clinical context of patient data. In addition, data may be omitted in some cases. CLINICAL DECISIONS SHOULD BE BASED ON THE PRIMARY CLINICAL RECORDS. [facility] [employer] provides no warranty or guarantee of the accuracy or completeness of information in this document.
== END | disposition home or self-care (01) ==
DX: D40.0 Neoplasm of uncertain behavior of prostate (principal); R53.83 Other fatigue
CPT/HCPCS: 36415; 80053; 81002; 84153; 84403; 85027; 87086; 88108; 88313; G0103